=== PATIENT | female | born 1960 | race Caucasian/White ===

== ENCOUNTER → 2017-01-30 | Outpatient (CLI) | payer BC ==
[~2017-01-30] MED LIST: ACET-1311 PO; BIOF500T PO; CALC500C70 PO; MAGNESIUM PO; MOVE FREE PO; MULT-506 PO
== END | disposition home or self-care (01) ==
LOC: C.PAPS 11:24
PROVIDERS: ATTEND Obstetrics & Gynecology
DX: Z01.419 Encounter for gynecological examination (general) (routine) without abnormal findings (principal)

== ENCOUNTER → 2017-04-12 | Outpatient (CLI) | payer BC ==
--- NOTE | 2017-04-12 15:52 | MAMMOGRAPHY REPORT ---
BILATERAL DIGITAL SCREENING MAMMOGRAM TOMOSYNTHESIS WITH CAD: 04/12/2017 CLINICAL HISTORY: Routine screening. Patient has no complaints. TECHNIQUE: Breast tomosynthesis in addition to standard 2D mammography was performed. Current study was also evaluated with a Computer Aided Detection (CAD) system. COMPARISON: Comparison is made to exams dated: 04/11/2016 mammogram, 04/07/2015 mammogram, 04/01/2014 mammogram, 10/28/2013 mammogram, 02/26/2013 mammogram, and 02/10/2010 mammogram - [facility]. BREAST COMPOSITION: There are scattered areas of fibroglandular density in both breasts. FINDINGS: No suspicious masses, calcifications, or areas of architectural distortion are noted in ei ther breast. There has been no significant interval change compared to prior exams. Bilateral benign -appearing calcifications are not significantly changed. Nodular asymmetry in the right medial anter ior breast is stable dating back to at least the 2008 exam. IMPRESSION: ACR BI-RADS CATEGORY 2: BENIGN There is no mammographic evidence of malignancy. A 1 year screening mammogram is recommended. The pa tient will receive written notification of the results. Approximately 10% of breast cancers are not detected with mammography. A negative mammographic report should not delay biopsy if a clinically suggestive mass is present. Elsi Encarnacion M.D. /:04/12/2017 13:45:19 Internal Control Consultant: Jayshree Flannery, [facility] letter sent: Normal 1/2 BI-RADS Code: ACR BI-RADS Category 2: Benign
== END | disposition home or self-care (01) ==
LOC: C.MAMM 08:09
PROVIDERS: ATTEND Obstetrics & Gynecology
DX: Z12.31 Encounter for screening mammogram for malignant neoplasm of breast (principal)

== ENCOUNTER 2022-05-03 05:19 | Observation (INO) ==
--- NOTE | 2022-04-06 11:16 | PAT Medication Instructions ---
Medication Instructions Date of Service April 06, 2022 Home Medications ascorbate calcium-bioflavonoid 1,000 mg-200 mg tablet (Magdalena-C with Bioflavonoids) 1 tab PO QAM calcium citrate 315 mg-vitamin D3 5 mcg (200 unit) tablet (Calcium Citrate + D) 1 tab PO QAM glucosamine sulfate-methylsulfonylmethane 500 mg-500 mg tablet 1 tab PO QAM magnesium 250 mg tablet 250 mg PO QAM multivitamin 1 tab PO QAM olmesartan 5 mg tablet 10 mg PO QAM potassium 99 mg tablet 99 mg PO QAM STOP taking 2 weeks before surgery (or as soon as possible if surgery is within 2 weeks) ascorbate calcium-bioflavonoid 1,000 mg-200 mg tablet (Magdalena-C with Bioflavonoids) 1 tab PO QAM glucosamine sulfate-methylsulfonylmethane 500 mg-500 mg tablet 1 tab PO QAM DO NOT take the morning of surgery calcium citrate 315 mg-vitamin D3 5 mcg (200 unit) tablet (Calcium Citrate + D) 1 tab PO QAM magnesium 250 mg tablet 250 mg PO QAM multivitamin 1 tab PO QAM olmesartan 5 mg tablet 10 mg PO QAM potassium 99 mg tablet 99 mg PO QAM Other Notes If you have any questions please call us at [phone] or [phone] or [phone] or [phone]
--- NOTE | 2022-04-11 09:16 | Anesthesiology Consultation ---
Date of Service April 11, 2022 Assessment & Plan (1) Encounter for pre-operative examination: - COVID screening: Per assessment on 04/06: No known COVID-19 positive contacts or current COVID-19 related symptoms. Travel screen negative. Patient vaccinated. At surgeon discretion if preop Covid testing being done. - Outpatient joint pathway: Per OR booking comments, plan for outpatient joint program. Patient seen at [facility] 04/11. Patient is an acceptable candidate to proceed as possible outpatient joint pathway pending perioperative course. Surgeon's office arranging post-op home management. - Anesthesia concern: Pt states she is particularly concerned/anxious regarding perioperative awareness/pain. All questions/concerns addressed and education/reassurance provided. Advised patient to discuss further with a nesthesiologist THUAN LIU if additional concerns. - Awaiting upcoming cardiology office visit (scheduled 04/24; Dr. Carrasco). Patient otherwise acceptable risk for surgery. Chart Review Chart Review: Patient seen in Pre Admission Testing Teaching & Discussion Pre-Anesthesia Teaching/Discussion Notes: Instructed NPO after midnight before surgery,except medications with 15 cc of water. Medication instructions provided according to the [facility] guidelines. History Surgery Operation Date: 05/03/22 07:00 Proposed Procedures p Right Total Knee Arthroplasty - Gildardo Bradshaw MD Height/Weight Height: 5 ft 6 in Weight: 48.7 kg Allergies Allergy/AdvReac Type Severity Reaction Status Date / Time No Known Drug Allergies Allergy Verified 04/06/22 08:36 Medications Home Medications Medication Instructions Recorded Confirmed Last Taken ascorbate calcium-bioflavonoid 1 tab PO QAM 04/06/22 04/06/22 Unknown 1,000 mg-200 mg tablet (Magdalena-C with Bioflavonoids) calcium citrate 315 mg-vitamin D3 1 tab PO QAM 04/06/22 04/06/22 Unknown 5 mcg (200 unit) tablet (Calcium Citrate + D) glucosamine 1 tab PO QAM 04/06/22 04/06/22 Unknown sulfate-methylsulfonylmethane 500 mg-500 mg tablet magnesium 250 mg tablet 250 mg PO QAM 04/06/22 04/06/22 Unknown multivitamin 1 tab PO QAM 04/06/22 04/06/22 Unknown olmesartan 5 mg tablet 10 mg PO QAM 04/06/22 04/06/22 Unknown potassium 99 mg tablet 99 mg PO QAM 04/06/22 04/06/22 Unknown metoprolol succinate 25 mg 12.5 mg PO DAILY PRN Palpitations 04/11/22 04/11/22 Unknown tablet,extended release 24 hr Past Medical History Medical History History of amenorrhea History of breast lump with biopsy (negative) History of COVID-19 08/2021 > congested, tired Hypertension Palpitations on beta zhanna PRN Psoriatic arthropathy Exercise / Class Metabolic Activity III < 4 Walking/Shop/Light housework (one FS (no CP, very mild SOB)) Past Family History Family History Mother Osteoporosis Father Parkinson disease Denies family history of Ovarian cancer Breast cancer Colorectal cancer Past Surgical History Surgical History H/O cataract removal with insertion of prosthetic lens bilat H/O exploratory laparotomy with removal of small/large intestine H/O tooth extraction History of appendectomy History of colonoscopy Hx laparoscopic cholecystectomy S/P small bowel resection "for twisted colon" Past Anesthesia History No Hx of Anesthesia Complications and No Family Hx of Anesthesia Complications History of PONV No Hx of PONV and Hx of Motion Sickness Social History Smoking Status: Never smoker Do You Dip or Chew Tobacco: No Hx Alcohol Use: Yes Alcohol type: wine alcohol intake frequency: a few times a week Hx Substance Use: No substance use type: does not use Review of Systems + Palpitations. Patient denies chest pain, shortness of breath, fever, chills, cough, wheezing. Physical Exam Vital Signs VITALS BP 144/88 P 65 TEMP 98.5 SP02 100%RA RESP 16 PHYSICAL Full cervical extension range of motion. Full TMJ range of motion. TMD 3.5 finger breaths Mallampati Score 2 Dentition: intact, + crowns Lungs: clear throughout to auscultation Cardiac: regular rate and rhythm, no murmurs noted Spine: normal Carotid arteries: negative bruit Extremities: no edema Lab Results Anesthesia Preop Results Results Anesthesia Widget: WBC 5.04 K/ul (4.8-10.8) 04/11/22 Hgb 13.2 g/dl (12.0-16.0) 04/11/22 Hct 37.9 % (34.1-44.9) 04/11/22 Plt 276 K/uL (130-400) 04/11/22 Na 132 mmol/L (136-145) L 04/11/22 K 4.4 mmol/L (3.5-5.1) 04/11/22 Cl 97 mmol/L (98-107) L 04/11/22 CO2 29 mmol/L (21-32) 04/11/22 BUN 15 mg/dl (6-23) 04/11/22 Creat 0.65 mg/dl (0.6-1.2) 04/11/22 Glucose Level 89 mg/dl (70-99(Fasting)) 04/11/22 PT 11.2 Seconds (9.0-12.0) 04/11/22 PTT 28.8 Seconds (21.0-31.0) 04/11/22 INR 1.1 (0.9-1.1) 04/11/22 HA1c 5.3 % (4.5-5.6) 04/11/22 Urine Color Yellow 04/11/22 Urine Appearance Clear (Clear) 04/11/22 Urine pH 8.0 (4.5-7.5) H 04/11/22 Urine Specific [place] 1.007 (1.000-1.030) 04/11/22 Urine Protein Negative (Negative) 04/11/22 Urine Glucose (UA) Negative (Negative) 04/11/22 Urine Ketones Negative (Negative) 04/11/22 Urine Blood Negative (Negative) 04/11/22 Urine Nitrite Negative (Negative) 04/11/22 Urine Bilirubin Negative (Negative) 04/11/22 Urine Urobilinogen Negative (Negative) 04/11/22 Urine Leukocyte Esterase Negative (Negative) 04/11/22 Blood Type A Positive 04/11/22 Antibody Screen NEGATIVE 04/11/22 Testing Electrocardiogram Date: 04/11/22 Findings: + SB @ (59) Echocardiogram Date: 03/14/21 LVEF 65-70%. No RWMA. Calcified decreased thoracic aorta. Mild LAD. No significant valvular disease. COVID-19 Risk Screen Screening Information COVID-19 Screen Date: 04/11/22 Exposure 21 Days Family/Household +COVID Last 21 Days: No Exposure 10 Days Any COVID Exposure Last 10 Days: No Symptoms Last 10 Days Experienced COVID Sx Last 10 Days: No + COVID 0-90 Days COVID + in Last 0-90 Days: No
--- NOTE | 2022-04-11 13:32 | History & Physical Report ---
Date of Service April 11, 2022 Assessment & Plan (1) Osteoarthritis of right knee: Plan: PRE-OP Diagnosis: Right knee osteoarthritis Planned Procedure: Right Total Knee Arthroplasty Plan: Patient is scheduled to go this procedure at the [facility] on April with Dr. Bradshaw. Risks and complications of the procedure such as: Infection, bleeding, pain, scarring, nerve blood vessel damage, weakness, wound problems, stiffness, incomplete relief of symptoms, hardware failure, hardware loosening, wear, fracture, tendon or ligament injury, blood clots, embolism, heart attack, stroke and were explained to the patient at her visit today. Informed consent to perform the procedure was obtained. Patient also understands risks of proceeding with surgical intervention during the COVID-19 pandemic. Currently she is asymptomatic and has not been in contact with anyone positive for the virus. We will need to obtain preoperative medical clearance from the patient's primary care provider along with her cook frozen dessert Dr. Carrasco. Patient states she sees her PCP later today and on April 24. Patient is scheduled to meet with anesthesia at the hospital today. While there she will obtain a CBC with differential, complete metabolic panel, PT/INR, blood type and screen, urinalysis, urine culture and sensitivity, hemoglobin A1c, EKG and a nasal culture for MRSA. During today's visit we reviewed the total knee packet. We discussed discharge planning, the use of antibiotics prior to dental procedure after replacement surgery. I recommended that she purchase a raised toilet seat and shower chair. She has a walker that she will bring with her on the day of the procedure. I discussed lectures offered by [facility] in regards to joint replacement surgery. We also talked about in-home physical therapy for the first 2 weeks postoperatively. She would like to do this and then will transition to outpatient physical therapy after her 2-week follow-up. I advised her that we will prescribe her with a narcotic pain medication and anti-inflammatory upon discharge from the hospital. We would like her to be on a baby aspirin twice daily for the first 30 days postoperatively for blood clot prevention. I also advised her that she will need to wear a knee immobilizer for the first 48 hours postoperatively. Patient is scheduled to see me for her 2-week postoperative follow-up visit on May 16 at 8 AM. At that appointment we will provide her with her rehab protocol as well as her order for to begin outpatient physical therapy. Patient and her verbalized unde rstanding of all information provided during today's visit. They thanked us for the care they have received. If they have questions or concerns should arise prior to the patient's surgery, they will contact clinic. This chart was completed utilizing [employer] voice recognition software. Grammatical errors, random word insertions, pronoun errors, and in complete sentences are an occasional consequence of the system. Any questions or concerns about the content, text, or information contained within the body of this dictation should be addressed directly to the physician for clarification. History of Present Illness Chief Complaint: Chief Complaint: Right knee pain Primary Care Provider: Humberto Mohr MD History of Present Illness (including history relevant to procedure): This 61-year-old female presents the clinic today for preoperative history and physical. Patient states she has approximately 10-year history of persistent left knee pain. Patient states that the pain is exacerbated when she descends stairs. She states that the pain affects the medial and lateral aspect of her knee. Has affected the way that she ambulates. Patient states she is not able to exercise as much as she had in the past. She was previously followed by another group in the area, received corticosteroid and viscosupplementation injections and did physical therapy without relief of her symptoms. Review Of Systems: A 12 point review of systems performed is unremarkable except for those things stated in the HPI and past medical history. Past Medical History: Problems: Right knee pain HTN (hypertension) PVC (premature ventricular contraction) Nevus Mixed anxiety and depressive disorder Psoriatic arthritis Osteopenia Procedure History Procedure Procedure Date Comments Cecal volvulus - partial bowel resection Appendectomy cholecystectomy mammogram - 03/06 Mammogram - screening 04/28/2021 - There is no mammographic evidence of malignancy. A 1 year screening mammogram is recommended. The patient will receive written notification of the results. Mammogram 04/21/2019 - No mammographic evidence of malignancy. Bone density scan 10/24/2018 - T score -2.0 Colonoscopy 09/25/2018 - Patent side to side ileo colonic anastomosis, characterized by health appearing mucosa and an intact staple line.The examined portion of the ileum was normal.Normal mucosa in the entire examined colon Biopsied. Screening mammogram of bilateral breasts 04/17/2018 - Impression: There is no mammographic evidence of malignancy. A 1 year screening mammogram is recommended. (04/18/2019) The patient will receive written notification of the results. PAP test date 03/07/2018 - Diagnosis: negative for intraepithelial lesion or malignancy. Mammogram - screening 04/12/2017 - There is no mammographic evidence of malignancy. A 1 year screening mammogram is recommended. The patient will receive written notification of the results. PAP test date 01/30/2017 - Negative for intraepithelial lesion or malignancy Mammogram 04/11/2016 - There is no mammographic evidence of malignancy Hip X-ray right 03/02/2016 - Impression: Calcific trochanteric bursitis. Shave biopsy 01/31/2016 PAP test date 01/17/2016 - WNL Mammogram 04/07/2015 - Normal PAP test date 01/11/2015 Pap smear for cervical cancer screening 01/11/2015 - Diagnosis: Negative for intraepithelial lesion or malignancy. Bone density scan 06/01/2014 - T-score: -2.4 - Osteopenia Mammogram 04/01/2014 - Dx right breast with US--Stable normal intramammary lymph node at the site of palpable lump in the right lateral breast. This is benign and no furhter follow up is neededBenign 9mm cluster of cysts in the right lower inner quadrant, which has been stable mammographically dating back to the 2011 exam. Date of last PAP smear 12/16/2013 diagnostic mammogram 10/28/2013 - 6 mth f/u recommended Allergies and Sensitivities: NKA Social history: Patient states that she occasionally consumes alcohol. She denies tobacco or illicit drug use Family history: Heart disease, diabetes and stroke Current Home Meds: (Last Updated 04/11 08:06) ascorbic acid (Vitamin C) 1 tab PO Daily calcium and vitamin D combination (Caltrate 600 + D oral tablet) 1 tab daily chondroitin/glucosamine/methylsulfonylmethane (Glucosamine Chondroitin Advanced oral tablet) 1 tab po daily magnesium oxide 1 tab PO Daily metoprolol (Toprol-XL 25 mg oral tablet, extended release) 12.5 mg PO Daily PRN palpitations multivitamin 1 tab PO Daily olmesartan (olmesartan 5 mg oral tablet) TAKE 2 TABLETS DAILY potassium chloride (potassium chloride 99 mg oral tablet) 99 mg PO Daily Allergies Allergy/AdvReac Type Severity Reaction Status Date / Time No Known Drug Allergies Allergy Verified 04/06/22 08:36 Home Medications Medication Instructions Recorded Confirmed Type ascorbate calcium-bioflavonoid 1 tab PO QAM 04/06/22 04/06/22 History 1,000 mg-200 mg tablet (Magdalena-C with Bioflavonoids) calcium citrate 315 mg-vitamin D3 1 tab PO QAM 04/06/22 04/06/22 History 5 mcg (200 unit) tablet (Calcium Citrate + D) glucosamine 1 tab PO QAM 04/06/22 04/06/22 History sulfate-methylsulfonylmethane 500 mg-500 mg tablet magnesium 250 mg tablet 250 mg PO QAM 04/06/22 04/06/22 History multivitamin 1 tab PO QAM 04/06/22 04/06/22 History olmesartan 5 mg tablet 10 mg PO QAM 04/06/22 04/06/22 History potassium 99 mg tablet 99 mg PO QAM 04/06/22 04/06/22 History metoprolol succinate 25 mg 12.5 mg PO DAILY PRN Palpitations 04/11/22 04/11/22 History tablet,extended release 24 hr Past Med/Surg History Medical History History of amenorrhea History of breast lump with biopsy (negative) History of COVID-19 08/2021 > congested, tired Hypertension Palpitations on beta zhanna PRN Psoriatic arthropathy Surgical History H/O cataract removal with insertion of prosthetic lens bilat H/O exploratory laparotomy with removal of small/large intestine H/O tooth extraction History of appendectomy History of colonoscopy Hx laparoscopic cholecystectomy S/P small bowel resection "for twisted colon" Family History Mother Osteoporosis Father Parkinson disease Denies family history of Ovarian cancer Breast cancer Colorectal cancer Social History Smoking Status: Never smoker Second Hand Exposure: No; Hx Alcohol Use: Yes Alcohol type: wine Hx Substance Use: No Preferred Language: Romanian Communication Ability: Effective Learning Development Specialist Required: No Beliefs That Will Affect Care: None Current Living Situation: Spouse Feels Safe at Home: Yes Dental Care, Regularly: Yes Physical Activity Frequency Comment: 4-5 times per week Seatbelt Use: always Sunscreen Use: Yes Assistive Devices: Glasses Review of Systems All systems reviewed & are unremarkable except as noted in Subjective Physical Exam Physical Exam: Physical Exam: (relevant to the procedure, including heart and lung evaluation) General: Alert and oriented x3 with proper grooming and hygiene Eyes: Pulls are equal and reactive to light with accommodation. Extraocular lids are intact Throat: Deferred due to COVID-19 precautions Cardiac: Regular rate and rhythm with no murmurs or gallops appreciated Lungs: Clear to auscultation throughout with no wheezing, rales or rhonchi Abdomen: Nonobese, nondistended, nontender with NABS Extremities: Right knee; range of motion is from 0 degrees of extension to 130 d egrees of flexion. There is medial and lateral joint line tenderness when knee is palpated in the flexed position. I was able to slightly manipulate the patient's patella with palpable crepitation. There is no varus or valgus laxity with stressing. AP drawer sign and Blake test are negative. Quad strength is 5 out of 5. Patient is neurovascular intact in the right lower extremity Neuro: Cranial nerves II through XII are intact with no motor or sensory deficit Skin: Normal in appearance with no open skin areas or discharge Results & Data ([facility]) Diagnostic Findings Studies (relevant to the procedure): Radiographic imaging; 3 views of the right knee and a leg length view were personally interpreted by Dr. Bradshaw as bone on bone arthritis of the lateral joint with valgus collapse bilaterally Code Status & VTE Plan VTE Prophylaxis Plan VTE Prophylaxis will be ordered: Yes
[2022-05-03] MEDS ORDERED: LR 500ML BOLUS, THEN 15ML/HR IV SCH (06:00)
[2022-05-03] MEDS ORDERED: LR 60ML/HR IV SCH (06:00)
[2022-05-03] MEDS ORDERED: ACETAMINOPHEN 500 MG TAB PO SCH (06:00)
[2022-05-03] MEDS ORDERED: Scopolamine 1 MG TDSY TD SCH (06:00)
[2022-05-03] MEDS ORDERED: TRANEXAMIC ACID 1,000 MG **IV Pre-op IV SCH (06:00)
[2022-05-03] MEDS ORDERED: FAMOTIDINE 20 MG TAB PO SCH (06:00)
[2022-05-03] MEDS ORDERED: traMADol HCL 50 MG TABLET PO SCH (06:00)
[2022-05-03] MEDS ORDERED: ceFAZolin 2000MG 2,000 MG/15 ML SYR IV SCH (06:00)
[2022-05-03] MEDS ORDERED: dexAMETHasone 4 MG TAB PO SCH (06:00)
[2022-05-03] MEDS ORDERED: TRANEXAMIC ACID 1,000 MG **IV Intra-op IV SCH (06:00)
[2022-05-03] MEDS ORDERED: ROPIVACAINE 0.5% HCL/PF 150 MG, BUPIVACAINE 0.75% MPF 20 ML, EPINEPHrine 0.15 MG, Ketor... INFIL SCH (06:00)
[2022-05-03] MEDS ORDERED: CeleBREX 200 MG CAP PO SCH (06:00)
[2022-05-03] MEDS ORDERED: MIDAZOLAM HCL 1 MG/ML 2ML VIAL ONE (06:14)
[2022-05-03] MEDS ORDERED: BUPIVACAINE 0.5 % 5 MG/1 ML PF 10ML VIAL ONE (06:22)
[2022-05-03] MEDS ORDERED: BUPIVACAINE 0.25% 30 ML VIAL ONE (06:22)
[2022-05-03] MEDS ORDERED: PROPOFOL IV EMULSION 10 MG/ML 20 ML VIAL IV ONE ×2 (06:26→07:54)
[2022-05-03] MEDS ORDERED: fentaNYL citrate 100 MCG/2 ML VIAL ONE (06:27)
--- NOTE | 2022-05-03 06:45 | History & Physical Bridge Note ---
Date of Service May 03, 2022 History & Physical Bridge Note I have examined the patient, reviewed the History & Physical and in the interval since the performance of the History & Physical I have noted the following changes of clinical significance: no changes noted
[2022-05-03] MEDS ORDERED: ePHEDrine sulfate 50 MG/ML AMP IV PRN (06:46)
[2022-05-03] MEDS ORDERED: ATROPINE SULFATE 0.1 MG/ML 10ML SYR IV PRN (06:46)
[2022-05-03] MEDS ORDERED: fentaNYL citrate 100 MCG/2 ML VIAL IV PRN (06:46)
[2022-05-03] MEDS ORDERED: ONDANSETRON INJ 2 MG/ML 2 ML VIAL IV PRN ×2 (06:46→08:49)
[2022-05-03] MEDS ORDERED: ORTHO JOINT ANESTHETIC ONE (06:57)
[2022-05-03] MEDS ORDERED: ONDANSETRON INJ 2 MG/ML 2 ML VIAL ONE (07:26)
[2022-05-03] MEDS ORDERED: oxyCODONE HCL IR 5 MG TAB (IMMEDIATE RELEASE) PO PRN (08:49)
[2022-05-03] MEDS ORDERED: ALUMINUM/MAGNESIUM SUSP 30 ML UDC PO PRN (08:49)
[2022-05-03] MEDS ORDERED: diphenhydrAMINE 50 MG/ML VIAL IV PRN (08:49)
[2022-05-03] MEDS ORDERED: MAGNESIUM HYDROXIDE SUSP 30 ML UDC PO PRN (08:49)
[2022-05-03] MEDS ORDERED: METOCLOPRAMIDE HCL INJ 5 MG/ML 2 ML VIAL IV PRN (08:49)
[2022-05-03] MEDS ORDERED: bisacodyL 10 MG SUPP PR PRN (08:49)
[2022-05-03] MEDS ORDERED: HYDROmorphone INJ 0.5 MG/0.5 ML SYR IV PRN (08:49)
[2022-05-03] MEDS ORDERED: NALOXONE HCL 0.4 MG/1 ML VIAL/CARP IV PRN (08:49)
--- NOTE | 2022-05-03 08:49 | Operative Report ---
Post Operative Report Pre & Post Diagnosis Operation Date: 05/03/22 07:00 Pre-Op Diagnosis: Osteoarthritis of right knee Post-Op Diagnosis: Osteoarthritis of right knee I identified the patient and participated in the time-out.: Yes Procedure Operation Date: 05/03/22 07:00 Actual Procedures p Right Total Knee Arthroplasty(Right) - Gildardo Bradshaw MD Surgeon Gildardo Bradshaw MD Coordinate Measuring Machine Technician Devendra Mays PAShabbir Estimated Blood Loss 50 Findings Consistent with Post-Op Diagnosis Specimens none Description of Procedure I was present during the entire procedure assisting with positioning, prepping, draping, wound retraction, wound closure and dressing application. No fellow present. Please see Dr. Bradshaw procedure note for specifics of the case. I attest to the content of the Intraoperative Record and any orders documented therein. Any exceptions are noted below.
[2022-05-03] MEDS ORDERED: METOPROLOL SUCC 25MG EXT REL TAB PO PRN (08:54)
--- NOTE | 2022-05-03 08:58 | Operative Report ---
Post Operative Report Pre & Post Diagnosis Operation Date: 05/03/22 07:00 Pre-Op Diagnosis: Osteoarthritis of right knee, genu valgum Post-Op Diagnosis: Osteoarthritis of right knee, genu valgum I identified the patient and participated in the time-out.: Yes Procedure Operation Date: 05/03/22 07:00 Actual Procedures p Right Total Knee Arthroplasty(Right) - Gildardo Bradshaw MD Surgeon Gildardo Bradshaw MD Gum Mixer Devendra Mays PA-C. No resident or fellow was available to assist. Estimated Blood Loss 50 Findings Consistent with Post-Op Diagnosis Fluids 1000 cc Specimens Bone and soft tissue contents from the right knee Anesthesia Type Spinal MAC Complications none Disposition Disposition: Recovery Room Indications 61-year-old female with right knee osteoarthritis refractory to conservative management. Clinical exam reveals her to be in valgus malalignment. X-rays show [id number] disease in the lateral compartment of the knee. I had a long discussion with her about the risks and benefits of surgery, alternatives, and expected outcomes. After reviewing all these she elected to proceed with surgery. All questions were answered. Informed consent was signed. Description of Procedure Patient was identified in the preoperative holding area where the surgical site, right knee, was marked. Patient was brought back to the operating room, placed on the operating room table, and IV sedation was administered. All bony prominences were padded. Perioperative antibiotics and tranexamic acid were administered. Exam under anesthesia was performed. This demonstrated valgus malalignment approximately 15 degrees. Range of motion was from 0 to 145 degrees. Stable to varus valgus with a competent MCL. The surgical site was prepped and draped in the normal sterile fashion. Prior to incision a multidisciplinary timeout was called. All in the room were in agreement. We began by exsanguinating the limb with an Esmarch bandage. Tourniquet was inflated to 250 mmHg. A 14 cm long incision was made over the anterior aspect of the knee. I dissected through the subcutaneous tissues to the level of the fascia. Full-thickness flaps were raised above the fascia. A median parapatellar arthrotomy was made. Half the fat pad was excised. A medial release was performed with Bovie electrocautery on the proximal tibia. Synovitis in the knee and suprapatellar pouch was removed. The patella was then everted and held with 2 towel clips. The thickness of the patella was measured at 22 mm. Patellar resection was performed. Caliper showed the patella thickness now to be 13 mm. A size 35 trial was placed and had a great fit. The 3 drill holes were placed then the trial button was placed. The patellar thickness was now 23 mm which I was very happy with. The patellar trial was then removed, the patella was everted and the knee was flexed up. Osteophytes were removed from the femoral condyles and intercondylar notch. The ACL and PCL were excised. Intramedullary drill guide was drilled into the femur. Distal femoral cutting guide was placed set at 5 degrees of valgus to resect 10 mm off the distal femur. Distal femoral resection was made without difficulty. The tibia was then exposed. The lateral meniscus was sharply excised. The tibial cutting jig was positioned to resect 9 mm off the less involved compartment. The jig was then pinned in position and the tibial cut was made. We then brought the knee into full extension. Lamina spreaders were placed. The medial meniscus was excised. The extension block was then placed for 5 mm thickness poly. This gave us full extension and excellent stability to varus and valgus. Next the knee was flexed up and the femoral sizing guide was placed. The patient sized to a size 3 femur. The 3 degree external rotation jig was used to create 2 holes in the distal femur. The jig was removed and the holes were compared to Whitesides axis and the epicondylar axis. We were happy with the rotation, and therefore placed a size three 4-in-1 cutting jig and pinned this into position. Our 4 cuts were made. The cutting jig was removed. The flexion block was then placed with the knee held at 90 degrees. There was excellent stability to varus and valgus at 90 degrees with no gapping medially or laterally. Next the box cutting jig was placed on the distal femur. The box cut was made and the femoral trial was impacted into position. The tibia was sized to a 3 for a fixed bearing component. The tibial tray was positioned in external rotation on the cut tibial surface and the knee was brought through a full range of motion. We then pinned the tibial tray into position and used the intramedullary drill followed by the keel punch. The trial polyethylene was then placed and the knee was brought through a full range of motion. I was very happy with the stability through a full range of motion, and the patellar tracking was excellent. Next the trial components were removed. I then injected the posterior capsule and periosteum with the periarticular injection cocktail. The bone cuts were then irrigated and dried while the cement was mixed on the back table. The femoral component was cemented on first. Excess cement was removed. A lap sponge was placed over the femoral component for protection, then the tibia was subluxated anteriorly. The all polyethylene tibial component was then cemented in place. Again excess cement was removed. The knee was brought into full extension and held there until the cement cured. The patella was cemented and clamped. Dilute Betadine solution was then allowed to irrigate the knee while the cement cured. Once the cement was fully cured, the tourniquet was let down and meticulous hemostasis was ensured. The wound was irrigated out with copious amounts normal saline. The knee was brought through a full range of motion and we were very happy with the patella tracking and the stability. We then began to close. Interrupted 0 Vicryl suture was used to repair the patellar retinaculum in [id number] fashion. The quadriceps and patellar tendons were run with #1 Ethibond. The deep dermal layer was closed with interrupted 2-0 Vicryl. Dermabond and Zipline was used for the skin. A compressive dressing was placed. Patient's sedation was lifted and was transferred to recovery room in stable condition. Summary of implants: Depuy Attune Posterior Stabilized Cemented Femur, size 3 right Attune All-polyethylene tibial component, posterior stabilized 5 mm thickness, size 3 Attune patella medialized dome, size 38 2 batches of simplex high viscosity bone cement Postoperative course: Patient will be admitted to the floor for pain control and monitoring. Weightbearing as tolerated with a walker with no knee range of motion for 48 hours. Aspirin for DVT prophylaxis. I attest to the content of the Intraoperative Record and any orders documented therein. Any exceptions are noted below.
[2022-05-03] MEDS ORDERED: NON-FORMULARY MEDICATION (Ascorbate Calcium-Bioflavonoid [Ester-C With Bioflavonoids] 1,00 PO SCH (09:00)
[2022-05-03] MEDS ORDERED: METHYLSULFONYLMETHANE PO SCH (09:00)
[2022-05-03] MEDS ORDERED: NON-FORMULARY MEDICATION (Multivitamin Tablet) PO SCH (09:00)
[2022-05-03] MEDS ORDERED: NON-FORMULARY MEDICATION (Potassium 99 mg Tablet) PO SCH (09:00)
[2022-05-03] MEDS ORDERED: GLUCOSAMINE SULFATE PO SCH (09:00)
--- NOTE | 2022-05-03 09:41 | XRay Report ---
TWO VIEWS RIGHT KNEE CLINICAL HISTORY: Postoperative examination. FINDINGS: AP and crosstable lateral portable views of the right knee are obtained. A right knee arthr oplasty is in near anatomic alignment. There has been undersurface remodeling of the patella. No acut e fracture is seen. There are expected postoperative changes around the knee including soft tissue ed akash and subcutaneous gas. Bandage material is seen anteriorly. IMPRESSION: Expected postoperative changes status post right knee arthroplasty. No acute fracture is seen. ACT 112: Negative or not required by law. Electronically signed by: Dashawn Serrato M.D. 05/03/2022 9:40 AM
[2022-05-03] MEDS: SODIUM CHLORIDE 0.9% 1000ML 1,000 ML IV SCH ×2 (12:11→20:06)
[2022-05-03] MEDS: OLMESARTAN MEDOXOMIL 5 MG TAB PO SCH (12:12)
[2022-05-03] MEDS: KETOROLAC TROMETHAMINE 15 MG/ML VIAL IV SCH ×3 (12:12→22:46)
[2022-05-03] MEDS: MAGNESIUM OXIDE 400 MG TAB PO SCH (12:12)
[2022-05-03] MEDS: ASPIRIN 81 MG ECTAB PO SCH ×2 (12:12→20:04)
[2022-05-03] MEDS: CALCIUM 600MG + VIT D 400 IU TAB PO SCH (12:12)
[2022-05-03] MEDS: MULTIVITAMIN TAB PO SCH (12:12)
[2022-05-03] MEDS: DOCUSATE SODIUM 100 MG CAP PO SCH ×2 (12:12→20:04)
[2022-05-03] MEDS: ACETAMINOPHEN 500 MG TAB PO SCH ×2 (12:13→22:45)
--- NOTE | 2022-05-03 14:49 | Anesthesiology Progress Note ---
Date of Service May 03, 2022 Anesthesia Post Procedure Vital Signs Vital Signs: Temp Pulse Pulse Resp BP Pulse Ox O2 Del Method 05/03/22 14:12 36.6 C 16 118/73 99 Room Air 05/03/22 12:43 36.6 C 56 L 16 120/75 100 Room Air 05/03/22 11:44 55 L 16 121/77 100 Room Air 05/03/22 10:45 54 L 16 111/70 100 Room Air 05/03/22 10:22 16 119/76 99 Room Air 05/03/22 09:43 36.5 C 59 L 114/73 98 Room Air 05/03/22 09:25 58 L 15 109/72 98 Room Air 05/03/22 09:15 36.5 C 63 21 127/79 97 Room Air 05/03/22 09:05 79 20 118/72 97 Room Air 05/03/22 08:55 58 L 16 111/76 100 Oxymask 05/03/22 08:48 36.0 C L 66 16 118/70 98 Oxymask 05/03/22 05:46 36.7 C 54 L 18 140/95 100 Room Air O2 Flow Rate 05/03/22 14:12 05/03/22 12:43 05/03/22 11:44 05/03/22 10:45 05/03/22 10:22 05/03/22 09:43 05/03/22 09:25 05/03/22 09:15 05/03/22 09:05 05/03/22 08:55 5 05/03/22 08:48 5 05/03/22 05:46 Transfer of Care Handoff Completed per policy Notes Mental Status: alert / awake / arousable and participated in evaluation Patient Amnestic to Procedure: Yes Nausea / Vomiting: adequately controlled Pain: adequately controlled Airway Patency, RR, SpO2: stable & adequate BP & HR: stable & adequate Hydration State: stable & adequate Neuraxial Anesthesia: was administered and sensory block is resolving Anesthetic Complications: no major complications apparent and Pt Satisfied with anesthetic care
[2022-05-03] MEDS ORDERED: TRANEXAMIC ACID / 0.7% NACL 1,000 MG/100 ML BAG IV SCH (15:00)
[2022-05-03] MEDS: ceFAZolin 2000MG 2,000 MG/15 ML SYR IV SCH ×2 (16:15→22:45)
[2022-05-03] MEDS: Scopolamine CHECK PATCH PLACEMENT SCH ×2 (16:16→23:10)
[2022-05-03] MEDS ORDERED: SENNA 8.6 MG TAB PO SCH (21:00)
[2022-05-04] MEDS: KETOROLAC TROMETHAMINE 15 MG/ML VIAL IV SCH (05:24)
[2022-05-04] MEDS: ACETAMINOPHEN 500 MG TAB PO SCH (05:24)
[2022-05-04] MEDS ORDERED: dexAMETHasone 4 MG TAB PO SCH (08:00)
[2022-05-04] MEDS: Scopolamine CHECK PATCH PLACEMENT SCH (08:07)
[2022-05-04] MEDS: OLMESARTAN MEDOXOMIL 5 MG TAB PO SCH (08:15)
[2022-05-04] MEDS: CALCIUM 600MG + VIT D 400 IU TAB PO SCH (08:15)
[2022-05-04] MEDS: DOCUSATE SODIUM 100 MG CAP PO SCH (08:16)
[2022-05-04] MEDS: ASPIRIN 81 MG ECTAB PO SCH (08:16)
[2022-05-04] MEDS: MAGNESIUM OXIDE 400 MG TAB PO SCH (08:16)
[2022-05-04] MEDS: MULTIVITAMIN TAB PO SCH (08:17)
[2022-05-04] MEDS ORDERED: CeleBREX 200 MG CAP PO SCH (09:00)
[2022-05-04 09:36] LABS: Hematocrit (blood only) 29.7 % (34.1-44.9); Hemoglobin 10.1 g/dl (12.0-16.0); Platelet Count 187 K/uL (130-400); RDW Standard Deviation 41.2 fL (36.4-46.3); Red Blood Count 3.16 M/uL (3.93-5.22)
[2022-05-04 10:27] LABS: BUN Creatinine Ratio 18.3 (10-20); Calcium 8.3 mg/dl (8.5-10.1); Creatinine Clr Calc Pharmacy 79.6 ml/min; Est GFR (African American) 115.6 ml/min; Est GFR (Non-African American) 99.8 ml/min; Potassium 3.6 mmol/L (3.5-5.1)
--- NOTE | 2022-05-04 10:53 | Orthopedic Progress Note ---
Date of Service May 04, 2022 Assessment & Plan (1) S/P total knee arthroplasty: Plan: PT/OT Weightbearing as tolerated with walker assistance and immobilizer use for the first 48 hours postoperatively Keep Silverlon dressing in place Ice with easy wrap Pain controlled p.o. medications DVT prophylaxis with aspirin and YAQUELIN stockings Plan is to discharge home around lunchtime today with in-home physical therapy beginning tomorrow Follow-up with [facility] orthopedics as previously scheduled With questions contact our clinic at [phone] Admission and Anticipated Discharge Date Admission Date: May 03, 2022 Subjective This 61-year-old female is day 1 status post right total knee arthroplasty. She states that she is doing very well. She states that her pain is very minimal and easily controlled with p.o. pain medication. She is very anxious to be discharged home with physical therapy beginning tomorrow. Currently she denies chest pain, shortness of breath, fever, chills, sweats or numbness or tingling in her right lower extremity. Review of Systems Review of Systems: All systems reviewed & are unremarkable except as noted in Subjective Physical Exam Physical Exam: Right knee: Outer dressing was removed. Silverlon is clean dry and in place. Patient is able to perform an active straight leg raise test. She is able to actively dorsi plantarflex her foot without issue. Quad strength is 3+ out of 5. Active knee range of motion is from 0 degrees of extension to approximately 80 degrees of flexion. Patient is neurovascularly intact in the right lower extremity. Results & Data ([facility]) Vital Signs (Past 12 Hours) Vital Signs Temp Pulse Resp BP Pulse Ox O2 Del Method 05/04/22 07:04 36.7 C 59 L 16 119/76 100 Room Air 05/04/22 03:16 36.8 C 61 16 106/71 97 Room Air 05/03/22 22:55 36.8 C 57 L 16 107/64 98 Room Air Diagnostic Findings Laboratory Results WBC 9.30 K/ul (4.8-10.8) 05/04/22 09:16 RBC 3.16 M/uL (3.93-5.22) L 05/04/22 09:16 Hgb 10.1 g/dl (12.0-16.0) L 05/04/22 09:16 Hct 29.7 % (34.1-44.9) L 05/04/22 09:16 MCV 94.0 fL (80.0-100.0) 05/04/22 09:16 MCH 32.0 pg (25.0-34.0) 05/04/22 09:16 MCHC 34.0 g/dL (32.0-36.0) 05/04/22 09:16 RDW Std Deviation 41.2 fL (36.4-46.3) 05/04/22 09:16 RDW Coeff of Carlos Manuel 12.0 % (11.5-14.5) 05/04/22 09:16 Plt Count 187 K/uL (130-400) 05/04/22 09:16 MPV 9.0 fL (9.4-12.3) L 05/04/22 09:16 Sodium 131 mmol/L (136-145) L 05/04/22 09:16 Potassium 3.6 mmol/L (3.5-5.1) 05/04/22 09:16 Chloride 100 mmol/L (98-107) 05/04/22 09:16 Carbon Dioxide 27 mmol/L (21-32) 05/04/22 09:16 Anion Gap 4 (3-11) 05/04/22 09:16 BUN 11 mg/dl (6-23) 05/04/22 09:16 Creatinine 0.60 mg/dl (0.6-1.2) 05/04/22 09:16 Est Cr Clr Drug Dosing 79.6 ml/min 05/04/22 09:16 Est GFR ( Amer) 115.6 ml/min 05/04/22 09:16 Est GFR (Non-Af Amer) 99.8 ml/min 05/04/22 09:16 BUN/Creatinine Ratio 18.3 (10-20) 05/04/22 09:16 Glucose 91 mg/dl (70-99(Fasting)) 05/04/22 09:16 Calcium 8.3 mg/dl (8.5-10.1) L 05/04/22 09:16 SARS-CoV-2, RNA, NAAT NEGATIVE (NEGATIVE) 05/03/22 Unknown Impressions Knee X-Ray 05/03/22 08:52 TWO VIEWS RIGHT KNEE CLINICAL HISTORY: Postoperative examination. FINDINGS: AP and crosstable lateral portable views of the right knee are obtained. A right knee arthroplasty is in near anatomic alignment. There has been undersurface remodeling of the patella. No acute fracture is seen. There are expected postoperative changes around the knee including soft tissue edema and subcutaneous gas. Bandage material is seen anteriorly. IMPRESSION: Expected postoperative changes status post right knee arthroplasty. No acute fracture is seen. ACT 112: Negative or not required by law. Electronically signed by: Dashawn Serrato M.D. 05/03/2022 9:40 AM
--- NOTE | 2022-05-04 10:59 | Discharge Summary ---
Date of Service May 04, 2022 Admission HPI Per Admitting Provider History of Present Illness (including history relevant to procedure): This 61-year-old female presents the clinic today for preoperative history and physical. Patient states she has approximately 10-year history of persistent left knee pain. Patient states that the pain is exacerbated when she descends stairs. She states that the pain affects the medial and lateral aspect of her knee. Has affected the way that she ambulates. Patient states she is not able to exercise as much as she had in the past. She was previously followed by another group in the area, received corticosteroid and viscosupplementation injections and did physical therapy without relief of her symptoms. Review Of Systems: A 12 point review of systems performed is unremarkable except for those things stated in the HPI and past medical history. Past Medical History: Problems: Right knee pain HTN (hypertension) PVC (premature ventricular contraction) Nevus Mixed anxiety and depressive disorder Psoriatic arthritis Osteopenia Procedure History Procedure Procedure Date Comments Cecal volvulus - partial bowel resection Appendectomy cholecystectomy mammogram - 03/06 Mammogram - screening 04/28/2021 - There is no mammographic evidence of malignancy. A 1 year screening mammogram is recommended. The patient will receive written notification of the results. Mammogram 04/21/2019 - No mammographic evidence of malignancy. Bone density scan 10/24/2018 - T score -2.0 Colonoscopy 09/25/2018 - Patent side to side ileo colonic anastomosis, characterized by health appearing mucosa and an intact staple line.The examined portion of the ileum was normal.Normal mucosa in the entire examined colon Biopsied. Screening mammogram of bilateral breasts 04/17/2018 - Impression: There is no mammographic evidence of malignancy. A 1 year screening mammogram is recommended. (04/18/2019) The patient will receive written notification of the results. PAP test date 03/07/2018 - Diagnosis: negative for intraepithelial lesion or malignancy. Mammogram - screening 04/12/2017 - There is no mammographic evidence of malignancy. A 1 year screening mammogram is recommended. The patient will receive written notification of the results. PAP test date 01/30/2017 - Negative for intraepithelial lesion or malignancy Mammogram 04/11/2016 - There is no mammographic evidence of malignancy Hip X-ray right 03/02/2016 - Impression: Calcific trochanteric bursitis. Shave biopsy 01/31/2016 PAP test date 01/17/2016 - WNL Mammogram 04/07/2015 - Normal PAP test date 01/11/2015 Pap smear for cervical cancer screening 01/11/2015 - Diagnosis: Negative for intraepithelial lesion or malignancy. Bone density scan 06/01/2014 - T-score: -2.4 - Osteopenia Mammogram 04/01/2014 - Dx right breast with US--Stable normal intramammary lymph node at the site of palpable lump in the right lateral breast. This is benign and no furhter follow up is neededBenign 9mm cluster of cysts in the right lower inner quadrant, which has been stable mammographically dating back to the 2011 exam. Date of last PAP smear 12/16/2013 diagnostic mammogram 10/28/2013 - 6 mth f/u recommended Allergies and Sensitivities: NKA Social history: Patient states that she occasionally consumes alcohol. She denies tobacco or illicit drug use Family history: Heart disease, diabetes and stroke Current Home Meds: (Last Updated 04/11 08:06) ascorbic acid (Vitamin C) 1 tab PO Daily calcium and vitamin D combination (Caltrate 600 + D oral tablet) 1 tab daily chondroitin/glucosamine/methylsulfonylmethane (Glucosamine Chondroitin Advanced oral tablet) 1 tab po daily magnesium oxide 1 tab PO Daily metoprolol (Toprol-XL 25 mg oral tablet, extended release) 12.5 mg PO Daily PRN palpitations multivitamin 1 tab PO Daily olmesartan (olmesartan 5 mg oral tablet) TAKE 2 TABLETS DAILY potassium chloride (potassium chloride 99 mg oral tablet) 99 mg PO Daily Admission Exam Per Admitting Provider Physical Exam: (relevant to the procedure, including heart and lung evaluation) General: Alert and oriented x3 with proper grooming and hygiene Eyes: Pulls are equal and reactive to light with accommodation. Extraocular lids are intact Throat: Deferred due to COVID-19 precautions Cardiac: Regular rate and rhythm with no murmurs or gallops appreciated Lungs: Clear to auscultation throughout with no wheezing, rales or rhonchi Abdomen: Nonobese, nondistended, nontender with NABS Extremities: Right knee; range of motion is from 0 degrees of extension to 130 degrees of flexion. There is medial and lateral joint line tenderness when knee is palpated in the flexed position. I was able to slightly manipulate the patient's patella with palpable crepitation. There is no varus or valgus laxity with stressing. AP drawer sign and Blake test are negative. Quad strength is 5 out of 5. Patient is neurovascular intact in the right lower extremity Neuro: Cranial nerves II through XII are intact with no motor or sensory deficit Skin: Normal in appearance with no open skin areas or discharge Principal Diagnosis Right knee osteoarthritis Discharge Exam Right knee: Outer dressing was removed. Silverlon is clean dry and in place. Patient is able to perform an active straight leg raise test. She is able to actively dorsi plantarflex her foot without issue. Quad strength is 3+ out of 5. Active knee range of motion is from 0 degrees of extension to approximately 80 degrees of flexion. Patient is neurovascularly intact in the right lower extremity. Discharge Data Allergies Allergy/AdvReac Type Severity Reaction Status Date / Time No Known Drug Allergies Allergy Verified 05/03/22 05:37 Procedures Performed Operation Date: 05/03/22 07:00 Actual Procedures p Right Total Knee Arthroplasty(Right) - Gildardo Bradshaw MD Ordered Studies 05/03/22 05:00 US - OR guided needle placemen Routine Hospital Course (1) S/P total knee arthroplasty: Patient had an uneventful overnight stay following right total knee arthroplasty. She is very pleased with the results of the surgery is essentially pain-free. She is anxious to be discharged home around lunchtime today with in-home physical therapy beginning tomorrow. PT/OT Weightbearing as tolerated with walker assistance and immobilizer use for the first 48 hours postoperatively Keep Silverlon dressing in place Ice with easy wrap Pain controlled p.o. medications DVT prophylaxis with aspirin and YAQUELIN stockings Plan is to discharge home around lunchtime today with in-home physical therapy beginning tomorrow Follow-up with [facility] orthopedics as previously scheduled With questions contact our clinic at [phone] Total Time Total Time Spent Total Time Spent (In Minutes): 20 minutes Discharge Plan Discharge Items Patient Disposition: Home - Home Health Services Reason For Visit: Right Knee Osteoarthritis Discharge Diagnosis: Right knee osteoarthritis Activity: As commented below Lifting: None Bathing: Keep incision dry Bathing Comment: May shower tomorrow Sexual Activity: Wait until after follow-up appointment Exercise/Sports: Wait until after follow-up appointment Driving/Machine Use: No driving until cleared by brand marketing specialist Weightbearing Comment: as tolerated with walker and immobilizer for first 48 hrs Non-emergency contact: Surgeon Call non-emergency contact if: you have any medication questions, your pain is not controlled, your temperature is above 101.5, your wound has increased drainage and your wound pain has increased Follow-up/Referrals: Humberto Mohr MD [Primary Care Provider] - Diet: Regular Addtl Attending Provider Instructions: Post-operative Instructions Dear Patient and Family/Friends, Before you are discharged from the hospital, it is important to know what to expect when you get home after surgery. To that end, we have created this sheet of discharge instructions which covers many commonly asked questions. Make sure you go through this sheet in its entirety with your nurse before you are discharged. Please note that we will go over the specifics of your surgery and recovery when you return for your first post-operative visit. Sincerely, Dr. Bradshaw Medications 1. Oxycodone 5 mg: take 1-2 tabs every 4-6 hours as needed for pain relief. A prescription will be sent to your pharmacy for this medication. 2. Diclofenac Sodium 50 mg: take 1 tab twice daily for 30 days post operatively for pain and inflammation relief. A prescription will be sent to your pharmacy with 1 refill. 3. Aspirin 81 mg: take 1 tab twice daily for the first 30 days post operatively for blood clot prevention. Please purchase. 4. Extra Strength Tylenol 500 mg: take 2 tabs every 6-8 hours as need for additional pain relief. Please purchase. Pain Expect to be in a fair amount of pain after surgery. Remember, our goal is not to eliminate your pain, but to make it tolerable. It is a good idea to stay ahead of your pain by taking the medications you were prescribed once you get home. Typically, the pain starts improving 3-7 days after surgery. You should start weaning off the narcotic pain medication (oxycodone, hydrocodone, hydromorphone, morphine) as soon as your pain improves. Please call our office if your pain is not adequately controlled. Ice Ice your operative site at least 5 times a day for 15-30 minutes at a time. Make sure you have a thin cloth between the ice or cooling unit and your skin to prevent chaparro bite. This is especially important if you received a nerve block. Continue icing your operative site for the first 5-7 days after surgery, then as needed. Diet/Nausea/Vomiting Start by drinking clear liquids and eating crackers. If you can tolerate this, then you may resume your normal diet. If you feel nauseated or vomit, take Zofran/ondansetron (if prescribed). Please call our office if you have intractable nausea or vomiting, or, if after hours, you may go to the Emergency Room for help. Constipation Constipation is a common side effect of narcotic pain medication. If you have not had a bowel movement within 2 days after surgery, we recommend purchasing an over the counter laxative such as Milk of Magnesia, Dulcolax, or Miralax from a local pharmacy, and taking it as instructed. Call our clinic if any questions. Slings and Braces If you were placed in a sling or brace, it must be worn at all times, including sleep. You may remove your sling or brace for physical therapy, home exercises, and showering. The length of time you will be in your brace and range of motion restrictions depends on what surgery you had; these details will be reviewed at your first post-operative appointment. Nerve block The anesthesia team sometimes places a nerve block to help with post-operative pain control. This results in significant numbness and inability to move the extremity. The nerve block usually wears off in 8-12 hours, but sometimes can last up to 24 hours. Please call our office if you are still unable to move your extremity after 24 hours, unless you received a pain pump to take home. Nerve blocks typically wear off quickly, so start taking pain medication as soon as you start feeling soreness near your surgical site. Weight bearing and Range of Motion. Do not bear any weight through your operative extremity immediately after surgery. If you had upper extremity surgery, do not lift anything with that arm. If you are in a knee brace, keep it locked in place until your follow-up. We will discuss your weight bearing, range of motion, and lifting restrictions in detail at your first post-operative appointment. Continuous Passive Motion (CPM) Machine If you were prescribed a CPM machine, it will start after your first post- operative appointment, at which time we will give you instructions on the range of motion settings and duration of treatment Physical therapy You will be given a prescription for physical therapy or occupational therapy at your first post-operative appointment. Typically, patients start therapy within 1 week of surgery Wound care and showering We will inspect your wound at your first post-operative visit, and may do a dressing change at that time. Most patients will be in a water-proof dressing that is removed 14 days after surgery. It is normal to see some dried blood on the dressing. Do not remove your dressing, paper strips or sutures yourself unless you are given permission. Showering is allowed the day after surgery. Do not scrub or remove any dressings. The wound should not be submerged underwater (i.e. in a bathtub or pool) until 4 weeks after surgery YAQUELIN stockings If you were given white stockings, these are to be worn at all times except to shower (on both legs) for the first 2 weeks after surgery. Driving You may not drive while taking narcotic pain medication or while in a cast, splint, sling or brace. You, the patient, need to make the final determination about when you are safe to drive, however, the earliest you may consider driving after surgery is below: Hand/Wrist/Elbow Surgery: 3 days Shoulder Surgery: 2 weeks Hip,/Knee/Ankle Surgery: 4 weeks Fracture repair: 6 weeks Return to Work Your return to work depends on what surgery was done and what type of work you do. Please bring any paperwork your employer needs completed to your first post-operative visit. Also, bring a description of your job duties, as this helps us to understand what risks you may face at work. Travel Avoid long distance travel (greater than 1 hour) in airplanes and cars for the first 6 weeks after surgery. If you must travel, you need to have a Doppler ultrasound done before you travel to rule out a blood clot in your legs. Follow-up You should have a follow-up appointment already scheduled 1-2 days after surgery. If not, please contact our office to make this appointment before you leave the hospital. When to call the office It is normal to have swelling and bruising in the limb that was operated on. This will improve with time. It is also normal to have fevers for the first 2 days after surgery. Reasons you should call your doctor include: Uncontrolled pain; Nausea, vomiting, or constipation that does not improve with medication; Fevers over 101.5, chills, sweats; Drainage or bleeding from the wound; Foul odor; Spreading areas of redness; Any other concerns Pending Studies at Discharge: No Stand-Alone Forms: My [facility] Medications and DC Order Prescriptions: New aspirin 81 mg Tablet,Delayed Release (Dr/Ec) 81 mg PO BID 30 Days Qty: 60 0RF oxycodone 5 mg tablet 5 mg PO Q4H Qty: 28 0RF diclofenac sodium 50 mg tablet,delayed release (DR/EC) 50 mg PO BID 30 Days Qty: 60 1RF Continued multivitamin Tablet 1 tab PO QAM potassium 99 mg Tablet 99 mg PO QAM magnesium 250 mg Tablet 250 mg PO QAM olmesartan 5 mg Tablet 10 mg PO QAM calcium citrate-vitamin D3 [Calcium Citrate + D] 315 mg-5 mcg (200 unit) Tablet 1 tab PO QAM glucosamine sulfate-msm 500-500 mg Tablet 1 tab PO QAM Magdalena-C with Bioflavonoids 1,000-200 mg Tablet 1 tab PO QAM metoprolol succinate 25 mg Tablet Extended Release 24 Hr 12.5 mg PO DAILY PRN (Reason: Palpitations) Discharge Orders: Discharge Order (Routine); Ordered 05/04/22 Ordered By: Clarke Mays Admission Data Admit Date/Time: 05/03/22 08:49 Attending Provider: Gildardo Bradshaw Admit Provider: Gildardo Bradshaw Primary Care Provider: Humberto Mohr Other Providers: [facility],Home Health
== END 2022-05-04 13:03 | disposition home health service (06) ==
LOC: 3E 05:19 → ASU 05:19